=== PATIENT | male | born 1985 | race Caucasian/White ===

== ENCOUNTER 2022-09-06 08:17 | Emergency (ER) | payer MEDICAID ==
[~2022-09-06] VITALS: Ht 167.6 cm; Wt 81.0 kg
[2022-09-06] MEDS ORDERED: ipratropium/albuterol 3ml nebule NEB ONE (09:05)
[2022-09-06] MEDS ORDERED: PRED20TA PO (11:25)
[2022-09-06] MEDS ORDERED: ALBU6.7H14 INH (11:25)
[2022-09-06 11:50] VITALS: BP 103/75
== END 2022-09-06 12:06 | disposition home or self-care (01) ==
LOC: ER 08:17
DX: J06.9 Acute upper respiratory infection, unspecified (principal); J45.901 Unspecified asthma with (acute) exacerbation; Z20.822 Contact with and (suspected) exposure to COVID-19; F17.200 Nicotine dependence, unspecified, uncomplicated; F11.10 Opioid abuse, uncomplicated
CPT/HCPCS: 71045; 87811; 94640; 94760; 99284

== ENCOUNTER 2022-11-07 13:48 | Emergency (ER) | payer MEDICAID ==
[~2022-11-07] VITALS: Ht 165.1 cm; Wt 86.4 kg
[~2022-11-07 13:48] MED LIST: ALBU6.7H14 INH
[2022-11-07 15:53] VITALS: BP 120/74
== END 2022-11-07 15:57 ==
LOC: ER 13:48
DX: T40.411A Poisoning by fentanyl or fentanyl analogs, accidental (unintentional), initial encounter (principal); J45.909 Unspecified asthma, uncomplicated; Z79.899 Other long term (current) drug therapy; Y92.89 Other specified places as the place of occurrence of the external cause
CPT/HCPCS: 99284